=== PATIENT | female | born 1965 | race Caucasian/White ===

== ENCOUNTER 2017-10-27 14:48 | Emergency (ER) | payer BC ==
[~2017-10-27] VITALS: Ht 167.6 cm; Wt 62.3 kg
[~2017-10-27 14:48] MED LIST: CITA-278 PO; NORCO10T PO; bariatric vitamins
[2017-10-27] MEDS ORDERED: diazepam 5mg tablet PO ONE (15:05)
[2017-10-27] MEDS ORDERED: acetaminophen 325mg tablet PO ONE (18:40)
[2017-10-27] MEDS ORDERED: MECL-111 PO (18:41)
[2017-10-27 19:08] VITALS: BP 121/70
== END 2017-10-27 19:00 | disposition home or self-care (01) ==
LOC: ER 14:49
DX: R42 Dizziness and giddiness (principal); R20.2 Paresthesia of skin; H91.90 Unspecified hearing loss, unspecified ear; Z88.1 Allergy status to other antibiotic agents; Z90.49 Acquired absence of other specified parts of digestive tract; Z88.8 Allergy status to other drugs, medicaments and biological substances
CPT/HCPCS: 70450; 99284

== ENCOUNTER 2018-03-23 21:19 | Emergency (ER) | payer BC ==
[~2018-03-23] VITALS: Ht 167.6 cm; Wt 60.8 kg
[~2018-03-23 21:19] MED LIST changes: +MECL-111 PO
[2018-03-23 21:27] VITALS: BP 108/72
== END 2018-03-23 22:35 | disposition home or self-care (01) ==
LOC: ER 21:20
DX: R07.89 Other chest pain (principal); R09.81 Nasal congestion; R07.81 Pleurodynia; Z90.49 Acquired absence of other specified parts of digestive tract; Z88.6 Allergy status to analgesic agent; Z88.1 Allergy status to other antibiotic agents; Z88.8 Allergy status to other drugs, medicaments and biological substances
CPT/HCPCS: 93005; 99283